=== PATIENT | female | born 1970 | race Caucasian/White ===

== ENCOUNTER 2020-04-28 17:58 | Emergency (ER) | payer OTHER ==
[~2020-04-28] VITALS: Ht 165.1 cm; Wt 48.0 kg
[2020-04-28 17:59] VITALS: BP 125/73
[2020-04-28] MEDS ORDERED: AMOXICILLIN/CLAV 875-125MG TABLET ONE (18:22)
[2020-04-28] MEDS ORDERED: LIDOCAINE-MPF 1%, 5ML ONE (18:22)
[2020-04-28] MEDS ORDERED: LIDOCAINE-MPF 1%, 5ML INFIL ONE (18:30)
[2020-04-28] MEDS ORDERED: PLEASE ENTER ALLERGIES MC SCH (18:30)
[2020-04-28] MEDS ORDERED: AMOXICILLIN/CLAV 875-125MG TABLET PO ONE (18:30)
[2020-04-28] MEDS ORDERED: NEOSPORIN OINT. PKT 1 PACKET ONE (18:49)
== END 2020-04-28 19:34 | disposition home or self-care (01) ==
LOC: ED 19:21
DX: S01.551A Open bite of lip, initial encounter (principal); W54.0XXA Bitten by dog, initial encounter; Y93.89 Activity, other specified; Y92.009 Unspecified place in unspecified non-institutional (private) residence as the place of occurrence of the external cause; Y99.8 Other external cause status
CPT/HCPCS: 40650; 99284